=== PATIENT | female | born 1940 | race Caucasian/White ===

== ENCOUNTER 2019-06-03 07:08 | Observation (INO) ==
[2019-06-03] MEDS ORDERED: Gabapentin 100 MG CAPSULE PO ONE (07:26)
[2019-06-03] MEDS ORDERED: *HR* Promethazine 25 MG/ML VIAL IVP PRN ×2 (07:26→11:31)
[2019-06-03] MEDS ORDERED: Ondansetron 4 MG/2 ML VIAL IVP PRN (07:26)
[2019-06-03] MEDS ORDERED: *HR* OxyCODONE Immed Rel 5 MG TABLET PO PRN (07:26)
[2019-06-03] MEDS ORDERED: Acetaminophen IV 1,000 MG/100 ML INFUS..BTL IVPB ONE (07:26)
[2019-06-03] MEDS ORDERED: *HR* Labetalol 20 MG/4 ML SYRINGE IVP PRN (07:26)
[2019-06-03] MEDS ORDERED: CeFAZolin Syr 2,000MG/20 ML 2,000 MG/20 ML SYRINGE IVPB ONE (07:30)
[2019-06-03] MEDS ORDERED: Ringers Solution, Lactated 1,000 ML IVC SCH (07:30)
[2019-06-03] MEDS ORDERED: Albuterol 2.5 MG/3 ML NEBULIZER IH PRN (07:30)
[2019-06-03] MEDS ORDERED: Ethanol\\Acetic Acid\\Na Ace\\Ben 1,000 ML IRRIG.SOLN IR ONE (07:39)
[2019-06-03] MEDS ORDERED: *HR* Propofol 200 MG/20 ML VIAL IVP ONE ×2 (07:43→09:58)
[2019-06-03] MEDS ORDERED: Dexamethasone 4 MG/ML VIAL ONE (07:43)
[2019-06-03] MEDS ORDERED: Tranexamic Acid 1,000 MG/10 ML VIAL ONE (07:43)
[2019-06-03] MEDS ORDERED: Lidocaine -MPF 2% 2 ML VIAL ONE ×2 (07:43)
[2019-06-03] MEDS ORDERED: *HR* Midazolam HCl 2 MG/2 ML VIAL ONE (07:43)
[2019-06-03] MEDS ORDERED: *HR* FentaNYL (PF) 100 MCG/2 ML VIAL ONE (07:43)
[2019-06-03] MEDS ORDERED: Ondansetron 4 MG/2 ML VIAL ONE (07:43)
[2019-06-03] MEDS ORDERED: Propofol 500 MG/50 ML INFUS..BTL ONE (07:44)
[2019-06-03] MEDS ORDERED: *HR* PHENYLEPHRINE 1,000 MCG/10 ML SYRINGE IVP ONE ×2 (09:18→10:06)
[2019-06-03 10:51] LABS: Hematocrit 34.4 % (35.3-44.9); Hemoglobin 11.4 g/dL (11.5-15.4)
[2019-06-03] MEDS ORDERED: *HR* OxyCODONE Immed Rel 5 MG TABLET PO STA (10:59)
[2019-06-03] MEDS ORDERED: Sennosides 8.6 MG TABLET PO PRN (11:31)
[2019-06-03] MEDS ORDERED: NON-FORMULARY MEDICATION 1 EACH EACH (Vit A/Vit C/Vit E/Zinc/Copper [Preservision Areds Ta PO SCH (11:31)
[2019-06-03] MEDS ORDERED: Fluticasone Propionate Nasal 50 MCG/SPRAY BOTTLE NS PRN (11:31)
[2019-06-03] MEDS ORDERED: HYDROcodone BIT/Homatropine 5 MG TABLET PO PRN (11:31)
[2019-06-03] MEDS ORDERED: Temazepam 15 MG CAPSULE PO PRN (11:31)
[2019-06-03] MEDS ORDERED: MOM Conc 10 ML UD.LIQ PO PRN (11:31)
[2019-06-03] MEDS ORDERED: Naloxone 0.4 MG/ML INJ IVP PRN (11:31)
[2019-06-03] MEDS: Ringers Solution, Lactated 1,000 ML IVC SCH (12:46)
[2019-06-03] MEDS: Verapamil ER (24 HR) 120 MG TABLET.ER PO SCH (12:56)
[2019-06-03] MEDS: *HR* Metformin 500 MG TABLET PO SCH (12:56)
[2019-06-03] MEDS: Multivit/Ca/Min/Fe/FA 1 TAB TABLET PO SCH (12:57)
[2019-06-03] MEDS: *HR* OxyCODONE Immed Rel 5 MG TABLET PO PRN ×2 (14:33→18:50)
[2019-06-03] MEDS: Ascorbic Acid 500 MG TABLET PO SCH (17:43)
[2019-06-03] MEDS ORDERED: D5% in Water 1,000 ML IVC PRN (20:06)
[2019-06-03] MEDS ORDERED: Dextrose Gel 15 GM/37.5 ML TUBE PO PRN ×2 (20:06)
[2019-06-03] MEDS ORDERED: *HR* Dextrose 50 % in Water (Syg) 50 ML SYRINGE IVP PRN (20:06)
[2019-06-03] MEDS: Famotidine 20 MG TABLET PO SCH (20:24)
[2019-06-03] MEDS: *HR* LORazepam 0.5 MG TABLET PO SCH (20:25)
[2019-06-03] MEDS: Insulin LISPRO 300 UNITS/3 ML VIAL SQ SCH (20:51)
[2019-06-04 05:41] LABS: Basophils % 0.3 %; Eosinophils % 0.1 %; Hematocrit 34.1 % (35.3-44.9); Hemoglobin 11.5 g/dL (11.5-15.4); Immature Granulocytes % 0.4 % (0-4); Lymphocytes # 1.7 K/mcL (0.6-4.6); Lymphocytes % 17.3 %; Mean Corpuscular HGB Conc 33.7 g/dL (31.6-35.5); Mean Corpuscular Hemoglobin 30.7 pg (28.0-33.3); Mean Corpuscular Volume 91.2 fL (83.0-100.0); Mean Platelet Volume 9.5 fL (9.4-12.4); Monocytes # 0.8 K/mcL (0.0-1.3); Monocytes % 7.9 %; Neutrophils # 7.4 K/mcL (1.6-8.9); Platelet Count 230 K/mcL (140-400); Red Blood Count 3.74 M/mcL (3.82-4.97); Red Cell Distribution Width 12.7 % (11.5-14.5); White Blood Count 10.1 K/mcL (4.3-11.1)
[2019-06-04 06:01] LABS: BUN/Creatinine Ratio 15 (6-26); Blood Urea Nitrogen 11 mg/dL (8-23); Calcium 8.7 mg/dL (8.6-10.3); Carbon Dioxide 24 mEq/L (23-29); Chloride 101 mEq/L (98-107); Glucose 140 mg/dL (70-105); Osmolality,Calculated 280 (280-300); Potassium 3.9 mEq/L (3.5-5.1); Sodium 134 mEq/L (136-145); eGFR For African Americans > 60 (> 60); eGFR For Non-African Americans > 60 (> 60)
[2019-06-04] MEDS: *HR* OxyCODONE Immed Rel 5 MG TABLET PO PRN ×3 (07:20→22:01)
[2019-06-04] MEDS: *HR* Metformin 500 MG TABLET PO SCH (08:10)
[2019-06-04] MEDS: Verapamil ER (24 HR) 120 MG TABLET.ER PO SCH (08:10)
[2019-06-04] MEDS: Multivit/Ca/Min/Fe/FA 1 TAB TABLET PO SCH (08:10)
[2019-06-04] MEDS: Aspirin Enteric Coated 81 MG Tablet PO SCH ×2 (08:12→12:12)
[2019-06-04] MEDS: Ascorbic Acid 500 MG TABLET PO SCH ×2 (08:12→15:25)
[2019-06-04] MEDS: Insulin LISPRO 300 UNITS/3 ML VIAL SQ SCH ×4 (08:13→20:28)
[2019-06-04] MEDS: Ondansetron 4 MG/2 ML VIAL IVP PRN (10:04)
[2019-06-04] MEDS: Ringers Solution, Lactated 1,000 ML IVC SCH (10:07)
[2019-06-04] MEDS: Famotidine 20 MG TABLET PO SCH (20:24)
[2019-06-04] MEDS: *HR* LORazepam 0.5 MG TABLET PO SCH (20:24)
[2019-06-05 01:18] LABS: Basophils % 0.2 %; Eosinophils % 0.2 %; Hematocrit 33.5 % (35.3-44.9); Hemoglobin 11.1 g/dL (11.5-15.4); Immature Granulocytes % 0.3 % (0-4); Lymphocytes # 1.2 K/mcL (0.6-4.6); Lymphocytes % 12.2 %; Mean Corpuscular HGB Conc 33.1 g/dL (31.6-35.5); Mean Corpuscular Hemoglobin 30.8 pg (28.0-33.3); Mean Corpuscular Volume 93.1 fL (83.0-100.0); Mean Platelet Volume 9.8 fL (9.4-12.4); Monocytes # 0.9 K/mcL (0.0-1.3); Monocytes % 8.6 %; Neutrophils # 7.9 K/mcL (1.6-8.9); Platelet Count 201 K/mcL (140-400); Red Cell Distribution Width 12.6 % (11.5-14.5); Segmented Neutrophils % 78.5 %; White Blood Count 10.1 K/mcL (4.3-11.1)
[2019-06-05 01:40] LABS: BUN/Creatinine Ratio 16 (6-26); Blood Urea Nitrogen 9 mg/dL (8-23); Calcium 9.2 mg/dL (8.6-10.3); Carbon Dioxide 25 mEq/L (23-29); Chloride 105 mEq/L (98-107); Glucose 126 mg/dL (70-105); Osmolality,Calculated 286 (280-300); Potassium 3.7 mEq/L (3.5-5.1); Sodium 138 mEq/L (136-145); eGFR For African Americans > 60 (> 60); eGFR For Non-African Americans > 60 (> 60)
[2019-06-05 07:58] VITALS: BP 144/87
[2019-06-05] MEDS: Insulin LISPRO 300 UNITS/3 ML VIAL SQ SCH ×2 (08:35→12:03)
[2019-06-05] MEDS: Ondansetron 4 MG/2 ML VIAL IVP PRN (08:52)
[2019-06-05] MEDS: Aspirin Enteric Coated 81 MG Tablet PO SCH (08:52)
[2019-06-05] MEDS: *HR* OxyCODONE Immed Rel 5 MG TABLET PO PRN (08:52)
[2019-06-05] MEDS: Verapamil ER (24 HR) 120 MG TABLET.ER PO SCH (08:52)
[2019-06-05] MEDS: Ascorbic Acid 500 MG TABLET PO SCH (08:55)
[2019-06-05] MEDS: Multivit/Ca/Min/Fe/FA 1 TAB TABLET PO SCH (08:55)
[2019-06-05] MEDS: *HR* Metformin 500 MG TABLET PO SCH (08:55)
== END 2019-06-05 12:00 ==
LOC: 3NENU 07:08 → SAMDAY 07:08 → 3NENU 11:30
PROVIDERS: ADMIT Orthopaedic Surgery; ATTEND Orthopaedic Surgery